=== PATIENT | female | born 1935 | race Caucasian/White ===

== ENCOUNTER 2016-10-30 11:01 | Day surgery (SDC) | payer MEDICARE ==
[2016-10-29 08:43] VITALS: BMI 33.8
[~2016-10-30 11:01] MED LIST: SODIUM CHLORIDE 0.9% 1,000 ML IV SCH; ceFAZolin 2 GM in SODIUM CHLORIDE 0.9% 100 ML IVPB ONE
[2016-10-30 11:45] VITALS: PULSE 66; RESP 20; TEMP 97
[2016-10-30] MEDS ORDERED: fentaNYL (PF) 50 MCG/ML 2 ML AMP IV ONE (12:20)
[2016-10-30] MEDS ORDERED: LIDOCAINE 2% INJ 20 MG/ML SQ ONE (12:21)
[2016-10-30] MEDS ORDERED: ACETAMINOPHEN TAB 325 MG TAB PO PRN (12:32)
[2016-10-30 15:02] VITALS: BP 134/65
--- NOTE | 2016-11-06 09:35 | P.PCN ---
Date of Procedure: 10/30/16 Preoperative Diagnosis: Unexplained syncope Postoperative Diagnosis: The same Procedure(s) Performed: Implantation of the loop recorder Implants: Indications for Procedure: Operative Findings: Description of Procedure: This is 81-year-old female who was recently admitted to the hospital with unexplained syncope that resulted in fracture of the humerus. Patient is advised to have a loop recorder insertion. Patient was brought to the lab in a fasting state. Patient was given IV conscious sedation with fentanyl 25 g. The skin was infiltrated with lidocaine in the left intercostal space on the left side. An incision was made and loop recorder was inserted in the usual fashion. Patient tolerated the procedure well. Satisfactory thresholds were obtained.. The incision was closed with single silk suture. Patient tolerated the procedure well. Plan: Patient will be monitored over the next few hours. If stable patient will be discharged home. She will continue prophylactic antibiotics and follow usual postoperative instructions
== END 2016-10-30 14:00 | disposition home or self-care (01) ==
LOC: CATHEP 11:01
PROVIDERS: ATTEND Internal Medicine Cardiovascular Disease
DX: R55 Syncope and collapse (principal); I25.10 Atherosclerotic heart disease of native coronary artery without angina pectoris; I10 Essential (primary) hypertension; Z79.82 Long term (current) use of aspirin; Z79.51 Long term (current) use of inhaled steroids; Z79.899 Other long term (current) drug therapy
CPT/HCPCS: 33282; C1764; J2001; J0690; J3010